=== PATIENT | female | born 1955 | race Caucasian/White ===

== ENCOUNTER 2017-04-19 18:22 | Emergency (ER) | payer BC ==
[~2017-04-19] VITALS: Ht 175.3 cm; Wt 92.0 kg
[~2017-04-19 18:22] MED LIST: CALCTAB5 PO; GABA-113 PO; INSPMPNVLG; LEVO200T6 PO; LISI2.5T5 PO; LPT10 PO; MULT-506 PO; PRT/20 PO; TRVOPS OPB; VTMD PO; ZINC25TA2 PO
[2017-04-19 18:25] VITALS: TEMP 36.6; Ht 175.3 cm; Wt 92.0 kg
--- NOTE | 2017-04-19 20:36 | DIAGNOSTIC IMAGING REPORT ---
LUMBAR SPINE 5 VIEWS CLINICAL HISTORY: Low back pain. Left leg pain. FINDINGS: 5 views of the lumbar spine are obtained. No prior studies are available for comparison at the time of dictation. The skeletal structures are osteopenic. There is no radiographic evidence of fracture or malalignment. Vertebral body height and alignment are maintained. The transverse and spinous processes are intact. There is no evidence of spondylolysis. Small anterior osteophytes are seen throughout. Mild disc space narrowing is seen at L1-L2. The remaining intervertebral disc spaces are well-maintained. Mild facet arthropathy seen in the lower lumbar spine. The visualized bony pelvis appears intact. There is a nonobstructed abdominal bowel gas pattern. An electronic device projects over the left upper abdomen. Suture material is noted in the left upper quadrant. IMPRESSION: 1. No acute bony abnormalities seen involving the lumbosacral spine. 2. Osteopenia and mild spondylotic change as above. Electronically signed by: Home Miller M.D. 04/19/2017 8:34 PM Dictated Date/Time: 04/19/2017 8:33 PM
[2017-04-19] MEDS ORDERED: ZNTT/150 PO (20:41)
[2017-04-19] MEDS ORDERED: TRAV0.00 OPB (20:41)
[2017-04-19] MEDS ORDERED: CALC-393 PO (20:41)
[2017-04-19] MEDS ORDERED: METO1TAB66 PO (20:41)
[2017-04-19] MEDS ORDERED: ERGO500037 PO (20:41)
--- NOTE | 2017-04-19 22:18 | DIAGNOSTIC IMAGING REPORT ---
ULTRASOUND LEFT LOWER EXTREMITY VENOUS CLINICAL HISTORY: Left leg pain. COMPARISON STUDY: No priors. TECHNIQUE: Real-time, grayscale, and color Doppler sonography of the deep veins of the left lower extremity was performed from the inguinal crease to the calf. Compression and augmentation were utilized. FINDINGS: There is no sonographic evidence of deep venous thrombosis identified in the left lower extremity. The common femoral, superficial femoral, and popliteal veins are patent and normally compressible. The greater saphenous vein and the profunda femoris vein at the junction with the common femoral vein are clear. The visualized calf veins are patent. IMPRESSION: There is no sonographic evidence of deep venous thrombosis identified in the left lower extremity. Electronically signed by: Home Miller M.D. 04/19/2017 10:16 PM Dictated Date/Time: 04/19/2017 10:16 PM
--- NOTE | 2017-04-19 22:24 | EMERGENCY ROOM VISIT NOTE ---
History First contact with patient: 19:05 Chief Complaint: HIP PAIN Stated Complaint: PAIN IN LF HIP JOINT History of Present Illness The patient is a 61 year old female who presents to the Emergency Room with complaints of left hip pain. The patient states that she recently flew back from [place]. She was visiting her daughter in [place] and states that they picked up an air conditioner together. She denies any pain at that time, but states that 1-2 hours afterward she developed severe pain in her left hip. She has had pain in the low back intermittently before, but states that the pain in the hip is new. The pain radiates into her left leg. She is having difficulty finding a comfortable position. She rates her discomfort a 7.5/10. She states that her knee has been giving out. She reports that her leg feels heavy and tingling. She denies any history of back issues. She denies any history of blood clots. She does not smoke. She denies any incontinence, redness or swelling of her leg or numbness. Review of Systems A complete 10 point review of systems was reviewed with the patient with pertinent positives and negatives as per history of present illness. All else were negative. Past Medical/Surgical History Medical Problems: (1) Bariatric bypass (2) Diabetes mellitus type 1 (3) hand surgery (4) ulcers Social History Smoking Status: Never Smoker Alcohol Use: occasionally Marital Status: Housing Status: lives with family Occupation Status: employed Current/Historical Medications Scheduled Atorvastatin (Atorvastatin Calcium), 10 MG PO QAM Calcium Carbonate (Calcium), 600 MG PO BID Ergocalciferol (Vitamin D 88495 Unit), 50,000 UNIT PO 4XWK Gabapentin (Neurontin), 300 MG PO HS Insulin Aspart (novoLOG INSULIN PUMP ), 1 EA N/A UD Levothyroxine Sodium (Levothyroxine Sodium), 1 TAB PO QAM Lisinopril (Lisinopril), 2.5 MG PO QAM Metoprolol Succinate (Toprol Xl), 50 MG PO DAILY Multivitamin (Multivitamin), 1 TAB PO QAM Ranitidine (Zantac), 300 MG PO BID Travoprost (Travatan Z), 1 DROPS OPB HS Zinc (Zinc Picolinate), 12.5 MG PO QAM Scheduled PRN Pantoprazole (Protonix), 20 MG PO QAM PRN for Heartburn Physical Exam Vital Signs Date Time Temp Pulse Resp B/P (MAP) Pulse Ox O2 Delivery O2 Flow Rate FiO2 04/19/17 22:38 62 18 159/66 98 04/19/17 22:18 62 18 159/66 98 Room Air 04/19/17 21:05 59 18 172/80 98 Room Air 04/19/17 18:25 36.6 57 16 165/77 98 Room Air Physical Exam VITALS: Vitals are noted on the nurse's note and reviewed by myself. Vital signs stable. GENERAL: This is a 61-year-old female, in no acute distress, nondiaphoretic, well-developed well-nourished. HEART: Regular rate and rhythm without murmurs gallops or rubs. LUNGS: Clear to auscultation bilaterally without wheezes, rales or rhonchi. MUSCULOSKELETAL: No tenderness to palpation in the lumbar spine or left hip. No erythema or swelling of the left leg. Full range of motion of the left lower extremity. Strength 5/5. NEURO: Patient was alert and oriented to person place and time. Normal sensation to light and sharp touch. Deep tendon reflexes 2+ throughout. Medical Decision & Procedures ER Provider Diagnostic Interpretation: ULTRASOUND LEFT LOWER EXTREMITY VENOUS FINDINGS: There is no sonographic evidence of deep venous thrombosis identified in the left lower extremity. The common femoral, superficial femoral, and popliteal veins are patent and normally compressible. The greater saphenous vein and the profunda femoris vein at the junction with the common femoral vein are clear. The visualized calf veins are patent. IMPRESSION: There is no sonographic evidence of deep venous thrombosis identified in the left lower extremity. LUMBAR SPINE 5 VIEWS FINDINGS: 5 views of the lumbar spine are obtained. No prior studies are available for comparison at the time of dictation. The skeletal structures are osteopenic. There is no radiographic evidence of fracture or malalignment. Vertebral body height and alignment are maintained. The transverse and spinous processes are intact. There is no evidence of spondylolysis. Small anterior osteophytes are seen throughout. Mild disc space narrowing is seen at L1-L2. The remaining intervertebral disc spaces are well-maintained. Mild facet arthropathy seen in the lower lumbar spine. The visualized bony pelvis appears intact. There is a nonobstructed abdominal bowel gas pattern. An electronic device projects over the left upper abdomen. Suture material is noted in the left upper quadrant. IMPRESSION: 1. No acute bony abnormalities seen involving the lumbosacral spine. 2. Osteopenia and mild spondylotic change as above. ED Course The patient was evaluated as above. The patient refused analgesics. Imaging studies were performed and read by radiology as above. Patient was reevaluated and findings were discussed. She states that she has been feeling better since she has been lying here. Discharge instructions were reviewed with the patient. The patient verbalized understanding of my assessment and treatment plan and was discharged home in good condition. Medical Decision Differential diagnosis includes DVT, cellulitis, lumbar radiculopathy, trochanteric bursitis, among others. The patient is a 61-year-old female who presents today complaining of left leg pain. Ultrasound of the leg was negative. X-rays of the lumbar spine were obtained and have no acute findings. I suspect that the patient's symptoms are likely secondary to lumbar radiculopathy. I did discuss possibly starting a course of prednisone, however the patient is diabetic and she states that the prednisone tends to increase her blood sugar significantly. The patient took Aleve prior to arriving here and stated that she felt like this helped her pain while she was in the emergency department. I encouraged her to continue this at home and follow-up with her primary care provider for possible initiation of physical therapy or further treatment. She was instructed to return here for any concerning numbness, weakness or new/concerning symptoms. She verbalized understanding of my assessment and treatment plan and was discharged home in good condition. Medication Reconcilliation Current Medication List: was personally reviewed by me Blood Pressure Screening Patient's blood pressure: Elevated blood pressure Blood pressure disposition: Elevated BP felt to be situational Impression Primary Impression: Left leg pain Additional Impression: Lumbar radiculopathy Departure Information Dispostion Home / Self-Care Condition GOOD Referrals Dennis Costa Jr,D.O. (PCP) Patient Instructions My [facility] [place] [facility] Additional Instructions Continue your medications at home as discussed. Avoid any heavy lifting. You may apply a heating pad to the back or hip, which can help with pain. Follow-up with your primary care provider within one to 2 weeks for further evaluation of today's symptoms. Return to the emergency department with severe pain, numbness of the leg, incontinence, or any other new/concerning symptoms. Problem Qualifiers
[2017-04-19 22:38] VITALS: BP 159/66; PULSE 62; O2SAT 98
== END 2017-04-19 22:39 | disposition home or self-care (01) ==
LOC: C.EDB 18:23 → C.EDC 22:39
DX: M79.605 Pain in left leg (principal); M54.16 Radiculopathy, lumbar region; E10.9 Type 1 diabetes mellitus without complications; Z79.4 Long term (current) use of insulin

== ENCOUNTER → 2017-04-21 | Outpatient (CLI) | payer BC ==
[~2017-04-21] MED LIST changes: +CALC-393 PO; -CALCTAB5 PO; +ERGO500037 PO; +METO1TAB66 PO; +TRAV0.00 OPB; -TRVOPS OPB; -VTMD PO; +ZNTT/150 PO
--- NOTE | 2017-04-21 14:53 | MAMMOGRAPHY REPORT ---
BILATERAL DIGITAL SCREENING MAMMOGRAM TOMOSYNTHESIS WITH CAD: 04/21/2017 CLINICAL HISTORY: Routine screening. Patient has no complaints. TECHNIQUE: Breast tomosynthesis in addition to standard 2D mammography was performed. Current study was also evaluated with a Computer Aided Detection (CAD) system. COMPARISON: Comparison is made to exams dated: 04/18/2016 mammogram, 02/08/2015 mammogram, 02/03/2014 ma mmogram, 01/28/2013 mammogram, 10/22/2011 mammogram, and 10/21/2010 mammogram - [facility]. BREAST COMPOSITION: There are scattered areas of fibroglandular density in both breasts. FINDINGS: The parenchymal pattern is unchanged. No developing mass, architectural distortion or clus ter of suspicious microcalcifications is seen in either breast. IMPRESSION: ACR BI-RADS CATEGORY 2: BENIGN There is no mammographic evidence of malignancy. A 1 year screening mammogram is recommended. The pa tient will receive written notification of the results. Approximately 10% of breast cancers are not detected with mammography. A negative mammographic report should not delay biopsy if a clinically suggestive mass is present. Mignon Painting M.D. ay/:04/21/2017 09:15:39 Molecular Physicist: Liseth REYNA(Baron)(M), [facility] letter sent: Normal 1/2 BI-RADS Code: ACR BI-RADS Category 2: Benign
== END | disposition home or self-care (01) ==
LOC: C.MAMM 08:31
DX: Z12.31 Encounter for screening mammogram for malignant neoplasm of breast (principal)

== ENCOUNTER → 2017-05-19 | Outpatient (CLI) | payer BC ==
[2017-05-19 12:28] LABS: BLOOD UREA NITROGEN 14 mg/dl (7-18); BUN/CREATININE RATIO 13.7 (10-20); CALCIUM 8.7 mg/dl (8.5-10.1); CARBON DIOXIDE 30 mmol/L (21-32); CHLORIDE 110 mmol/L (98-107); CREATININE 0.99 mg/dl (0.60-1.20); GLUCOSE 178 mg/dl (70-99); POTASSIUM 4.4 mmol/L (3.5-5.1); SODIUM 144 mmol/L (136-145)
== END | disposition home or self-care (01) ==
LOC: C.LAB 09:34
DX: E55.9 Vitamin D deficiency, unspecified (principal); I10 Essential (primary) hypertension

== ENCOUNTER → 2017-08-04 | Outpatient (CLI) | payer BC ==
[~2017-08-04] MED LIST changes: +METO-452 PO; -METO1TAB66 PO
== END | disposition home or self-care (01) ==
LOC: C.LAB 11:23
DX: R79.89 Other specified abnormal findings of blood chemistry (principal)

== ENCOUNTER → 2017-10-29 | Outpatient (CLI) | payer OTHER ==
[~2017-10-29] MED LIST changes: +RANI150T85 PO; -ZNTT/150 PO
== END | disposition home or self-care (01) ==
LOC: C.LAB 07:56
DX: E55.9 Vitamin D deficiency, unspecified (principal)

== ENCOUNTER → 2018-01-12 | Day surgery (SDC) | payer OTHER ==
[2017-12-08 11:50] VITALS: Ht 175.3 cm; Wt 90.0 kg
[~2018-01-12] VITALS: Ht 175.3 cm; Wt 90.0 kg
[~2018-01-12] MED LIST changes: +500ML BSS 0.3ML EPI 1:1000PF IRRIG ONE; +ACETAMINOPHEN 325 MG TAB PO PRN; +AMVISC PLUS 0.8ML SYRINGE INT OCU ONE; +ATROPINE SO4 1 MG/ML 1ML VIAL IV PRN; +BSS FLUSH ONE; +EpHEDrine SULFATE INJ 50 MG/ML AMP IV PRN; +EpINEphrine INJ 1MG/ML AMP 1 MG/ML AMP ONE; +FENTANYL CITRATE INJ 50 MCG/1 ML 2 ML VIAL IV PRN; +FLUMAZENIL 0.1 MG/1 ML 10 ML VIAL IV PRN; +HYDROmorphone INJ 0.5 MG/0.5 ML SYR IV PRN; +LABETALOL HCL IV 5 MG/ML 20ML IV PRN; +LACTATED RINGER'S 1000ML 500 ML IV SCH; +LIDOCAINE 3.5% OPH GEL PER APPLICATION CHARGE ONE; +LIDOCAINE HCL 1% MPF 2 ML VIAL ONE; +LISI-1116 PO; -LISI2.5T5 PO; +MEPERIDINE HCL 25 MG/ML CARP IV PRN; +MIDAZOLAM HCL 1 MG/ML 2ML VIAL ONE; +NALOXONE HCL 0.4 MG/1 ML VIAL/CARP IV PRN; +OCUCOAT 1 ML SOLN IO ONE; +ONDANSETRON INJ 2 MG/ML 2 ML VIAL IV PRN; +PHENYLEPHRINE 100MCG/ML 5ML SYR IV PRN; +PHENYLEPHRINE HCL 10% OP SOLN PER DROP CHARGE OPL SCH; +POVIDONE-IODINE OP SOLN 30 ML BTL ONE; +PROPARACAINE 0.5% OP SOLN PER DROP CHARGE OPL SCH; -PRT/20 PO; +TOBRAMYCIN/DEXAMETHASONE OPH OINT PER APPLN CHARGE ONE; -ZINC25TA2 PO
[2018-01-12] MEDS: PHENYLEPHRINE HCL 2.5% OP SOLN PER DROP CHARGE OPL SCH ×2 (06:36→06:41)
[2018-01-12] MEDS: TROPICAMIDE 1% OP SOLN PER DROP CHARGE OPL SCH ×2 (06:37→06:42)
[2018-01-12] MEDS: CYCLOPENTOLATE HCL 1% OP SOLN PER DROP CHARGE OPL SCH ×2 (06:38→06:43)
[2018-01-12] MEDS: KETOROLAC 0.5% OP SOLN PER DROP CHARGE OPL SCH ×2 (06:39→06:44)
[2018-01-12] MEDS: GATIFLOXACIN OP SOLN PER DROP CHARGE OPL SCH ×2 (06:40→06:53)
--- NOTE | 2018-01-12 06:58 | History & Physical Bridge - [place] ---
H&P Re-Evaluation Bridge Note: I have examined the patient, reviewed the History & Physical and in the interval since the performance of the History & Physical I have noted the following changes of clinical significance: No changes noted
--- NOTE | 2018-01-12 07:37 | [facility] Operative Report ---
Operative Report Date of Service January 12, 2018. Operative Report 1. PREOPERATIVE DIAGNOSIS: Cataract of the left eye. 2. POSTOPERATIVE DIAGNOSIS: Same. 3. PROCEDURE: Phacoemulsification with intraocular lens implantation of the left eye. SURGEON: Dr. Emmanuel Mccormack. ANESTHESIA: Topical Lidocaine gel, 1% Non- Preserved intracameral Lidocaine, and monitored intravenous sedation. INDICATIONS FOR THE PROCEDURE: The patient is a 62 - year-old female with a history of cataract of the left eye causing significant visual impairment. The details of the proposed procedure were explained to the patient who asked appropriate questions and following discussion of all risks, benefits and alternatives agreed to have the procedure done. 4. OPERATION AND FINDINGS: DESCRIPTION OF PROCEDURE: After informed consent was obtained, the patient was brought to the Operating Room at the [facility]. The patient was placed in a supine position and then the left eye was prepped and draped in the usual sterile fashion for intraocular surgery. A drop of topical Lidocaine gel was placed in the operative eye. A wire lid speculum was then placed in the fornices. A corneal paracentesis was then created temporally. The Non-Preserved Lidocaine was then instilled into the anterior chamber. The anterior chamber was then pressurized with viscoelastic. A 2.0 mm clear corneal incision was then created temporally. A cystotome was inserted into the anterior chamber and used to create a tear in the anterior lens capsule. This capsular tear was then used to create a small flap and the flap was dragged in a counterclockwise direction in order to create a continuous curvilinear capsulorrhexis. Hydrodissection was accomplished with balanced salt solution. Phacoemulsification of the lens nucleus was then performed in a standard [id number] technique. The phaco time was 22 seconds with an average power of 9 %. The remaining cortical material was removed using irrigation aspiration. The capsular bag was then filled with viscoelastic. A [employer] Lomb MI60L +14.5 diopters lens was then loaded into the injector and injected into the capsular bag. The remaining viscoelastic was removed with the irrigation aspiration handpiece. The wound was hydrated and then checked and found to be watertight. The intraocular pressure was checked and found to be adequate. The wire lid speculum was removed and the patient's face was cleaned and dried. TobraDex ointment was placed in the inferior fornix. The patient was discharged to the Recovery Room having tolerated the procedure well. There were no complications. The patient will be seen tomorrow in the office for follow-up. I attest to the content of the Intraoperative Record and any orders documented therein. Any exceptions are noted below.
--- NOTE | 2018-01-12 07:38 | Discharge Instructions-SurgCtr ---
Discharge Instructions Date of Service January 12, 2018. Visit Reason for Visit: Cataract Left Eye Discharge Discharge Diagnosis / Problem: cataract Discharge Goals Goal(s): Improve function Activity Recommendations Activity Limitations: per Instructions/Follow-up section Anesthesia . Post Anesthesia Instructions: If you have had General Anesthesia or IV Sedation: * Do not drive today. * Resume driving when surgeon permits. * Do not make important decisions or sign legal documents today. * Call surgeon for: 1. Temperature elevations greater than 101 degrees F. 2. Uncontrollable pain. 3. Excessive bleeding. 4. Persistent nausea and vomiting. 5. Medication intolerance (nausea, vomiting or rash). * For nausea and vomiting use only clear liquids such as: tea, soda, bouillon until nausea subsides, then gradually increase diet as tolerated. * If you have any concerns or questions, call your surgeon's office. If physician is unavailable and it is an emergency, call 911 or go to the nearest emergency room. . Diet Recommendations Home Diet: resume previous diet Procedures Procedures Performed: Left Cataract Phacoemulsification With Intraocular Lens Implant Pending Studies Studies pending at discharge: no Medical Emergencies . Who to Call and When: Medical Emergencies: If at any time you feel your situation is an emergency, please call 911 immediately. . Non-Emergent Contact Non-Emergency issues call your: Associate Director Of Nursing . . "Provider Documentation" section prepared by Emmanuel Mccormack. .
[2018-01-12 07:40] VITALS: TEMP 36.6
--- NOTE | 2018-01-12 07:56 | Anesthesia Progress Nt - [facility] ---
Anesthesia Post Op Note Date & Time January 12, 2018 at 07:56 Vital Signs Pain Intensity: 0 Vital Signs Past 12 Hours Date Time Temp Pulse Resp B/P (MAP) Pulse Ox O2 Delivery O2 Flow Rate FiO2 01/12/18 07:40 36.6 61 16 147/75 (99) 100 Room Air 01/12/18 06:32 36.7 68 18 168/90 (116) 97 Room Air Notes Mental Status: alert / awake / arousable, participated in evaluation Pt Amnestic to Procedure: Yes Nausea / Vomiting: adequately controlled Pain: adequately controlled Airway Patency, RR, SpO2: stable & adequate BP & HR: stable & adequate Hydration State: stable & adequate Anesthetic Complications: no major complications apparent The patient will adjust her insulin pump to treat her hyperglycemia.
[2018-01-12 07:59] VITALS: BP 122/72; PULSE 60; O2SAT 100
== END | disposition home or self-care (01) ==
LOC: X.SURG 06:22
PROVIDERS: ATTEND Ophthalmology
DX: H26.9 Unspecified cataract (principal); I10 Essential (primary) hypertension; K21.9 Gastro-esophageal reflux disease without esophagitis; E10.40 Type 1 diabetes mellitus with diabetic neuropathy, unspecified; E78.5 Hyperlipidemia, unspecified; E89.0 Postprocedural hypothyroidism; Z98.84 Bariatric surgery status; Z82.62 Family history of osteoporosis; Z80.0 Family history of malignant neoplasm of digestive organs; Z83.3 Family history of diabetes mellitus; Z82.49 Family history of ischemic heart disease and other diseases of the circulatory system

== ENCOUNTER → 2018-04-23 | Outpatient (CLI) | payer OTHER ==
[~2018-04-23] MED LIST changes: -500ML BSS 0.3ML EPI 1:1000PF IRRIG ONE; -ACETAMINOPHEN 325 MG TAB PO PRN; -AMVISC PLUS 0.8ML SYRINGE INT OCU ONE; -ATROPINE SO4 1 MG/ML 1ML VIAL IV PRN; -BSS FLUSH ONE; -EpHEDrine SULFATE INJ 50 MG/ML AMP IV PRN; -EpINEphrine INJ 1MG/ML AMP 1 MG/ML AMP ONE; -FENTANYL CITRATE INJ 50 MCG/1 ML 2 ML VIAL IV PRN; -FLUMAZENIL 0.1 MG/1 ML 10 ML VIAL IV PRN; -HYDROmorphone INJ 0.5 MG/0.5 ML SYR IV PRN; -LABETALOL HCL IV 5 MG/ML 20ML IV PRN; -LACTATED RINGER'S 1000ML 500 ML IV SCH; -LIDOCAINE 3.5% OPH GEL PER APPLICATION CHARGE ONE; -LIDOCAINE HCL 1% MPF 2 ML VIAL ONE; -MEPERIDINE HCL 25 MG/ML CARP IV PRN; -MIDAZOLAM HCL 1 MG/ML 2ML VIAL ONE; -NALOXONE HCL 0.4 MG/1 ML VIAL/CARP IV PRN; -OCUCOAT 1 ML SOLN IO ONE; -ONDANSETRON INJ 2 MG/ML 2 ML VIAL IV PRN; -PHENYLEPHRINE 100MCG/ML 5ML SYR IV PRN; -PHENYLEPHRINE HCL 10% OP SOLN PER DROP CHARGE OPL SCH; -POVIDONE-IODINE OP SOLN 30 ML BTL ONE; -PROPARACAINE 0.5% OP SOLN PER DROP CHARGE OPL SCH; -TOBRAMYCIN/DEXAMETHASONE OPH OINT PER APPLN CHARGE ONE
--- NOTE | 2018-04-23 14:29 | MAMMOGRAPHY REPORT ---
BILATERAL DIGITAL SCREENING MAMMOGRAM TOMOSYNTHESIS WITH CAD: 04/23/2018 TECHNIQUE: Breast tomosynthesis in addition to standard 2D mammography was performed. Current study w as also evaluated with a Computer Aided Detection (CAD) system. COMPARISON: Comparison is made to exams dated: 04/21/2017 mammogram, 04/18/2016 mammogram, 02/08/2015 m ammogram, 02/03/2014 mammogram, 10/29/2011 mammogram, and 10/22/2011 mammogram - [facility] nter. BREAST COMPOSITION: There are scattered areas of fibroglandular density in both breasts. FINDINGS: No suspicious masses, calcifications, or areas of architectural distortion are noted in either breast . There has been no significant interval change compared to prior exams. IMPRESSION: ACR BI-RADS CATEGORY 1: NEGATIVE There is no mammographic evidence of malignancy. A 1 year screening mammogram is recommended.( 019) The patient will receive written notification of the results. Some breast cancers are not detected with mammography. A negative mammographic report should not renuka y biopsy if a clinically suggestive mass is present. Nichole Sue M.D. ah/:04/23/2018 09:40:50 Maintenance Apprentice: RT Pavan(Baron)(M), [facility] letter sent: Normal 1/2 BI-RADS Code: ACR BI-RADS Category 1: Negative
== END | disposition home or self-care (01) ==
LOC: C.MAMM 08:28
DX: Z12.31 Encounter for screening mammogram for malignant neoplasm of breast (principal)